=== PATIENT | female | born 1940 | race Caucasian/White ===

== ENCOUNTER 2017-12-21 12:09 | Emergency (ER) | payer OTHER, BC ==
[~2017-12-21] VITALS: Ht 162.6 cm; Wt 45.8 kg
[2017-12-21 13:23] VITALS: Ht 162.6 cm; Wt 45.8 kg
[2017-12-21 15:16] VITALS: BP 120/48
== END 2017-12-21 16:20 | disposition home or self-care (01) ==
LOC: ED 12:09
DX: R06.03 Acute respiratory distress (principal); J06.9 Acute upper respiratory infection, unspecified; J44.9 Chronic obstructive pulmonary disease, unspecified; F17.210 Nicotine dependence, cigarettes, uncomplicated
CPT/HCPCS: 99406

== ENCOUNTER 2018-06-09 16:02 | Inpatient (IN) | payer OTHER, BC ==
[~2018-06-09] VITALS: Ht 162.6 cm; Wt 44.9 kg
[2018-06-09 16:04] VITALS: Ht 162.6 cm; Wt 44.9 kg
[2018-06-09 18:07] LABS: UA SPECIFIC GRAVITY >=1.030 (1.005-1.035); microscopic required? YES; urine erythrocyte 2+ (NEGATIVE)
[2018-06-09 20:14] LABS: BASOPHIL % 0.6 % (0-2); PLATELET COUNT 225 x10^3mcL (130-400); RED CELL DISTRIBUTION WIDTH 13.2 % (11.5-14.5)
[2018-06-09 20:23] LABS: CALCIUM 8.8 mg/dL (8.5-10.1); CARBON DIOXIDE 31.8 mmol/L (21-32); CHLORIDE SERUM 101 mmol/L (98-107); CREATININE SERUM 0.8 mg/dL (0.6-1.0); GLUCOSE SERUM 98 mg/dL (74-106); POTASSIUM SERUM 3.5 mmol/L (3.5-5.1); SODIUM SERUM 140 mmol/L (136-145)
[2018-06-09 20:27] LABS: ALKALINE PHOSPHATASE 84 U/L (46-116); AST/SGOT 11 U/L (15-37); BILIRUBIN TOTAL 0.41 mg/dL (0.20-1.00)
[2018-06-09 20:34] LABS: ALBUMIN 2.9 g/dL (3.4-5.0)
[2018-06-09] MEDS ORDERED: TRAZODONE50 M1 PO (20:35)
[2018-06-09 21:01] LABS: ALT/SGPT 12 U/L (14-59)
[2018-06-09 21:35] LABS: FREE T4 1.31 ng/dL (0.76-1.46); FREE THYROXINE INDEX 3.1 ug/dL (1.4-4.5); T4(THYROXINE) 9.3 ug/dL (4.7-13.3)
[2018-06-09 22:08] VITALS: BP 134/51
[2018-06-09 23:38] LABS: T3 TOTAL 0.98 ng/mL
[2018-06-10 00:04] LABS: CHOLESTEROL/HDL RATIO 3.4; PHOSPHOROUS 3.3 mg/dL (2.5-4.9)
[2018-06-10 05:41] VITALS: BP 109/79
[2018-06-10 06:32] LABS: BASOPHIL % 0.5 % (0-2); PLATELET COUNT 200 x10^3mcL (130-400); RED CELL DISTRIBUTION WIDTH 13.2 % (11.5-14.5)
[2018-06-10 07:05] LABS: CALCIUM 8.1 mg/dL (8.5-10.1); CARBON DIOXIDE 26.8 mmol/L (21-32); CHLORIDE SERUM 104 mmol/L (98-107); CREATININE SERUM 0.7 mg/dL (0.6-1.0); GLUCOSE SERUM 79 mg/dL (74-106); POTASSIUM SERUM 3.4 mmol/L (3.5-5.1); SODIUM SERUM 139 mmol/L (136-145)
[2018-06-10 09:04] VITALS: BP 113/44
[2018-06-10 11:48] VITALS: BP 133/52
[2018-06-10 17:06] VITALS: BP 127/51
[2018-06-11 06:16] VITALS: BP 131/49
[2018-06-11 06:24] LABS: BASOPHIL % 0.9 % (0-2); PLATELET COUNT 219 x10^3mcL (130-400); RED CELL DISTRIBUTION WIDTH 13.3 % (11.5-14.5)
[2018-06-11 06:33] LABS: CALCIUM 8.5 mg/dL (8.5-10.1); CARBON DIOXIDE 25.5 mmol/L (21-32); CHLORIDE SERUM 108 mmol/L (98-107); CREATININE SERUM 0.7 mg/dL (0.6-1.0); GLUCOSE SERUM 92 mg/dL (74-106); MAGNESIUM 1.9 mg/dL (1.8-2.4); PHOSPHOROUS 3.4 mg/dL (2.5-4.9); POTASSIUM SERUM 3.6 mmol/L (3.5-5.1); SODIUM SERUM 140 mmol/L (136-145)
[2018-06-11 10:25] VITALS: BP 139/56
[2018-06-11 10:40] VITALS: BP 139/56
[2018-06-11] MEDS ORDERED: LEVAQUIN750 MG PO (12:17)
[2018-06-11] MEDS ORDERED: FLA500 PO (12:20)
== END 2018-06-11 13:00 | disposition home or self-care (01) | DRG 391 ==
LOC: ED 16:02 → DU 19:47 → MU 19:47 → DU 21:45
PROVIDERS: Emergency Medicine; Internal Medicine
DX: K57.32 Diverticulitis of large intestine without perforation or abscess without bleeding (principal); N17.0 Acute kidney failure with tubular necrosis; E44.0 Moderate protein-calorie malnutrition; Z68.1 Body mass index [BMI] 19.9 or less, adult; N39.0 Urinary tract infection, site not specified; K59.00 Constipation, unspecified; K80.20 Calculus of gallbladder without cholecystitis without obstruction; N28.1 Cyst of kidney, acquired; R73.03 Prediabetes; E78.5 Hyperlipidemia, unspecified; E87.6 Hypokalemia
CPT/HCPCS: 83880; 84439; A9577; J0696; J1885; J1956; J3010; J3490; J7030; Q0092

== ENCOUNTER 2020-06-30 14:35 | Emergency (ER) | payer OTHER, BC ==
[~2020-06-30] VITALS: Ht 162.6 cm; Wt 47.2 kg
[~2020-06-30 14:35] MED LIST: FLA500 PO; LEVAQUIN750 MG PO; TRAZODONE50 M1 PO
[2020-06-30 14:57] VITALS: BP 145/64; Ht 162.6 cm; Wt 47.2 kg
== END 2020-06-30 15:17 | disposition home or self-care (01) ==
LOC: ED 14:35
DX: S62.001A Unspecified fracture of navicular [scaphoid] bone of right wrist, initial encounter for closed fracture (principal); S63.502A Unspecified sprain of left wrist, initial encounter; S63.501A Unspecified sprain of right wrist, initial encounter; W18.39XA Other fall on same level, initial encounter; Y93.89 Activity, other specified; Y92.512 Supermarket, store or market as the place of occurrence of the external cause; Y99.8 Other external cause status
CPT/HCPCS: Q0092

== ENCOUNTER 2020-07-24 16:59 | Emergency (ER) | payer OTHER, BC ==
[~2020-07-24] VITALS: Ht 167.6 cm; Wt 45.8 kg
[2020-07-24 17:21] VITALS: BP 120/59
== END 2020-07-24 18:54 | disposition home or self-care (01) ==
LOC: ED 16:59
DX: H61.21 Impacted cerumen, right ear (principal); H60.91 Unspecified otitis externa, right ear; H92.02 Otalgia, left ear; M19.90 Unspecified osteoarthritis, unspecified site; G47.00 Insomnia, unspecified